=== PATIENT | female | born 2000 | race African-American/Black ===

== ENCOUNTER 2020-10-18 13:25 | Emergency (ER) | payer OTHER ==
[~2020-10-18] VITALS: Ht 160 cm; Wt 83.9 kg
[~2020-10-18 13:25] MED LIST: AMOXICILLI250 MG/51 PO; AMOXICILLI400 MG/5 M PO; CLINDAGEL40 ML TOP; DOXYCYCLINE 10100 M1 PO; IBUPROFEN100 MG/52 PO; KEFLEX500 MG PO; NOHOMEMEDICATIONS
[2020-10-18] MEDS ORDERED: BUTALB-APAP-CA1 EACH PO (15:02)
[2020-10-18 15:15] VITALS: BP 112/72
== END 2020-10-18 15:16 | disposition home or self-care (01) ==
LOC: M.ERS 13:25
DX: R51.9 Headache, unspecified (principal)

== ENCOUNTER 2021-06-19 00:01 | Emergency (ER) | payer OTHER ==
[~2021-06-19] VITALS: Ht 160 cm; Wt 81.7 kg
[~2021-06-19 00:01] MED LIST changes: +BUTALB-APAP-CA1 EACH PO
[2021-06-19] MEDS ORDERED: MEDROLDOSEPACK PO (02:09)
[2021-06-19] MEDS ORDERED: FLEXERIL PO (02:09)
[2021-06-19 02:24] VITALS: BP 141/73
== END 2021-06-19 02:24 | disposition home or self-care (01) ==
LOC: M.ERS 00:01
DX: Z79.899 Other long term (current) drug therapy (principal); S39.012A Strain of muscle, fascia and tendon of lower back, initial encounter; X50.0XXA Overexertion from strenuous movement or load, initial encounter; Y93.89 Activity, other specified; Y92.89 Other specified places as the place of occurrence of the external cause; Y99.8 Other external cause status